=== PATIENT | male | born 1975 | race Caucasian/White ===

== ENCOUNTER 2019-12-30 06:51 | Outpatient (NON) | payer OTHER, SELFPAY ==
[2019-12-31 14:12] LABS: SARS-CoV-2 RNA PCR Negative
== END 2019-12-30 06:52 ==
PROVIDERS: PCP Physician Assistant; Visit Provider Physician Assistant
DX: R09.89 Other specified symptoms and signs involving the circulatory and respiratory systems (principal); Z20.828 Contact with and (suspected) exposure to other viral communicable diseases
CPT/HCPCS: 87635; C9803; U0003